=== PATIENT | male | born 1980 | race Caucasian/White ===

== ENCOUNTER 2019-06-19 07:59 | Emergency (ER) | payer BC, SELFPAY ==
[2019-06-19 08:00] VITALS: BP 147/92; PULSE 90; RESP 16; TEMP 36.2; O2SAT 96; BMI 27.9
--- NOTE | 2019-06-19 08:11 | CT_ITS ---
STUDY: CT BRAIN WITHOUT CONTRAST REASON FOR EXAM: Male, 38 years old. Headache and blurred vision today, no injury. Hx hypertension. RADIATION DOSAGE (If Supplied By Facility): CTDIvol = ( 44.99 ) mGy, DLP = ( 745.49 ) mGycm TECHNIQUE: Transaxial CT imaging of the brain was performed without administration of intravenous contrast material. Individualized dose optimization techniques were used for this CT. COMPARISON: No relevant priors. FINDINGS: Normal soft tissue structures. Normal calvarium. Normal size ventricles and extra-axial spaces for the patient''s age. Normal white matter tracts of the cerebral hemispheres. Normal basal ganglia and thalami. Normal brainstem. Normal cerebellum. There is no intracranial hemorrhage. There are no findings of an acute ischemic infarction. There is mucosal thickening of the ethmoids, right maxillary and sphenoid sinuses. CT/Brain/Head without Contrast IMPRESSION: Normal unenhanced CT scan of the brain except for sinus disease. Electronically Signed: Get Kraft MD at 8:55 EST Tel , Service support ,
[2019-06-19] MEDS: 0.9% Normal Saline 1,000 ML 1000 ML IV (08:22)
[2019-06-19] MEDS: Acetaminophen 500 MG Tablet 1000 MG PO (08:22)
[2019-06-19] MEDS: Ondansetron 4 MG/2 ML Vial IV (08:22)
--- NOTE | 2019-06-19 08:26 | ED.DCSUM_ITS ---
- ER Visit Summary Date of Service: 06/19/19 Chief Complaint: Headache and blurred vision History of Present Illness: The patient is a [address] West. He reports that 630 this morning he woke with a headache that is on both temples. He describes it as throbbing. Is 3 out of 10 in severity. He has had similar headaches. He reports that approximately 645 he put on his glasses and found that his vision was blurred bilaterally. He denies any flashing lights or squiggly lines in his vision. However, he states that he feels as though everything is moving toward him. When he was driving and stopped he felt like his car was rolling backwards. He wears glasses but no contacts. He denies any eye pain. No discharge from his eyes. Patient denies any other neurologic symptoms. No vertigo. No numbness or weakness. No personal or family history of migraines. No family history of aneurysms. Physical Examination: Vitals: Stable. Afebrile. General: Well-nourished and well-developed. Head: Normocephalic atraumatic. Neck: Supple, no lymphadenopathy. No JVD. Nontender. Cardiovascular: Regular rate and rhythm. No murmurs. Respiratory: No respiratory distress. Clear to auscultation bilaterally. Abdominal: Soft, nontender, nondistended, normal bowel sounds. No guarding, rebound, or peritoneal signs. Back: Nontender. Extremities: Nontender, no edema. Skin: Normal color, no rash. Neurologic: Alert and oriented ?3. Cranial nerves II through XII are intact. Normal strength and sensation. Psych: Normal affect. Test Results: CBC shows a hemoglobin of 18.3 and eosinophils of 8. Chem-7 shows a chloride of 110 and BUN of 25. Clinical Impression(s) from Imaging Studies Brain CT 06/19/19 08:11 IMPRESSION: Normal unenhanced CT scan of the brain except for sinus disease. Electronically Signed: Get Kraft MD at 8:55 EST Tel , Service support , Emergency Department Course and Treatment: Patient had an IV placed. He was given a liter normal saline. He was given Zofran IV and Toradol p.o. He is resting comfortably. Visual acuity is 20/50 on the right, 20/70 on the left, 20/50 bilaterally with his glasses on. Treatment Plan: Patient was discussed with Dr. Jack. He states that this does not raise any red flags, but he would be happy to see the patient in the office today for his blurred vision. This was discussed with the patient. Return to the emergency department for any worsening symptoms. Disposition: To home in improved and stable condition. Impression: 1. Blurred vision. 2. Cephalgia. This note was generated with [employer] software. It may contain incorrect words, spelling, and punctuation that were not noted in review of the chart prior to signing ED Disposition - Plan for ED Patient: Instructions: Blurred Vision Referrals: Rafita Jack MD [STAFF PHYSICIAN] - 06/19/19
[2019-06-19 08:31] LABS: Absolute Lymphocyte Count 2.27 X10^3/uL (0.83-4.51); Absolute Neutrophil Count 4.2 X10^3/uL (2.0-7.7); Basophil# 0.08 X10^3/uL; Eosinophil# 0.61 X10^3/uL; Eosinophils% 7.8 % (0-5); Hematocrit 52.1 % (40-54); Lymphocyte # 2.27 X10^3/ul (4.0); Mean Corp Hgb Conc 35.1 g/dL (32-36); Mean Corpuscular Hgb 31.1 pg (27.0-32.0); Mean Corpuscular Volume 88.5 fL (80-94); Monocyte# 0.67 X10^3/uL; Monocyte% 8.6 % (0-10); NRBC Flagged by Analyzer 0 % (0-5); Neutrophil # 4.19 X10^3/uL (2.7-7.7); Neutrophil % 53.5 % (47-70); Platelet Count 291 K/mm3 (150-450); RBC Distribution Width CV 12.1 % (11.6-14.6); RBC Distribution Width SD 39.3 fl (35.1-43.9); Red Blood Count 5.89 M/mm3 (4.6-6.2); White Blood Count 7.8 K/mm3 (4.4-11.0)
[2019-06-19 08:35] LABS: Hemoglobin 18.3 g/dL (13.0-16.5)
[2019-06-19 08:43] LABS: Anion Gap 5 (5-15); BUN 25 mg/dL (7-18); BUN/Creat Ratio 24.3 RATIO (10-20); Calcium,Total 8.9 mg/dL (8.5-10.1); Chloride 110 mmol/L (98-107); Creatinine, Serum 1.03 mg/dL (0.70-1.30); EST Glomerular Filtration Rate 85 mL/min (>60); Est Glom Filt Rate - Afr Amer 103 mL/min (>60); Estimated Creatinine Clearance 99.42 ml/min; Glucose 102 mg/dL (74-106); Potassium 3.9 mmol/L (3.5-5.1); Sodium Level 143 mmol/L (136-145)
[2019-06-19 09:20] VITALS: BP 144/88; PULSE 71; RESP 16; O2SAT 99
[2019-06-22 10:25] LABS: Pathologist Review Reviewed
== END 2019-06-19 09:22 | disposition home or self-care (01) ==
PROVIDERS: Emergency Provider Emergency Medicine; PCP Family Medicine
DX: H53.8 Other visual disturbances (principal); R51 Headache; Z79.899 Other long term (current) drug therapy
CPT/HCPCS: 70450; 80048; 85025; 96361; 96374; 99284; J2405